=== PATIENT | male | born 1980 | race Caucasian/White ===

== ENCOUNTER 2020-05-26 10:37 | Day surgery (SDC) | payer OTHER ==
[2020-05-25 12:01] VITALS: BMI 44.3
[2020-05-26] MEDS ORDERED: MIDAZOLAM HCL 2 MG/2 ML SINGLE DOSE VIAL ONE (13:57)
[2020-05-26] MEDS ORDERED: IOHEXOL 180 MG/1 ML ML IJ ONE (14:13)
[2020-05-26] MEDS ORDERED: LIDOCAINE HCL 1%, 10 MG/ML (20ML VIAL) INF ONE (14:13)
[2020-05-26] MEDS ORDERED: LIDOCAINE HCL 1%, 10 MG/ML (20ML VIAL) ONE (14:19)
[2020-05-26] MEDS ORDERED: DEXAMETHASONE SOD PHOSPHATE/PF 10 MG/ML SDV ONE (14:19)
[2020-05-26] MEDS ORDERED: BUPIVACAINE HCL/PF 0.25% (2.5MG/ML) 10 ML VIAL IJ ONE ×2 (14:19→14:25)
[2020-05-26] MEDS ORDERED: DEXAMETHASONE SOD PHOSPHATE 10 MG/1 ML VIAL IM ONE (14:19)
[2020-05-26] MEDS ORDERED: BUPIVACAINE HCL/PF 0.25% (2.5MG/ML) 10 ML VIAL ONE (14:19)
[2020-05-26 16:34] VITALS: BP 123/69; PULSE 73; TEMP 97.5
--- NOTE | 2020-06-05 01:02 | PROC ---
Procedure Note Procedure: Date of operation : 05/26/2020 Preoperative diagnosis : Right leg pain, right foot pain , status post CRPS Postoperative diagnosis : Same Procedure : Right lumbar sympathetic block at L3 level Anesthesia : Local/MAC Procedure: I discussed with him in detail about risk benefit and alternative of treatment, not only limited to infection fever injury to blood vessels nerves, Viscera, hematoma paralysis, anything can happen. Patient understood, agreed, and signed the written consent. Patient was placed in the prone position with the head abdomen leg supported with pillows patient was given monitored anesthesia care. Under fluoroscopy L3 level, local anesthesia was injected into skin and subcutaneous tissue. A spinal needle was used to approach anterolateral aspect of the L3 vertebra on right side. Needle position was confirmed under fluoroscopy views. After negative aspiration of blood , contrast was injected to see the flow of dye. After negative aspiration, 10 mL of 0.25% Marcaine was injected at this level. Vitals were observed. Needle was withdrawn. bleeding was checked and a sterile bandage was placed. Patient tolerated procedure well. there was no immediate complications. Patient was transported to recovery room. patient was observed and asked the pain level, patient had significant relief of the pain. Patient was discharged as per ASU criteria. Patient was told to apply ice. If any problem call me or report to ER. Follow-up appointment was given. Berhane Cristina M.D.
== END 2020-05-26 16:00 | disposition home or self-care (01) ==
LOC: JASU-SURG 10:37
PROVIDERS: ATTEND Physical Medicine & Rehabilitation
PROC: BR16YZZ Fluoroscopy of Lumbar Facet Joint(s) using Other Contrast (ICD-10-PCS; 2020-05-26)
PROC: 3E0T3BZ Introduction of Anesthetic Agent into Peripheral Nerves and Plexi, Percutaneous Approach (ICD-10-PCS; principal; 2020-05-26 13:30)
DX: M79.604 Pain in right leg (principal); M79.671 Pain in right foot
CPT/HCPCS: 76000-TC-FY; J1100

== ENCOUNTER 2020-06-15 08:39 | Day surgery (SDC) | payer OTHER ==
[2020-06-14 14:53] VITALS: BMI 43.9
[2020-06-15] MEDS ORDERED: BUPIVACAINE HCL/PF 0.25% (2.5MG/ML) 10 ML VIAL ONE (09:41)
[2020-06-15] MEDS ORDERED: LIDOCAINE HCL 1%, 10 MG/ML (20ML VIAL) ONE (09:41)
[2020-06-15] MEDS ORDERED: BETAMET ACET/BETAMET NA PH 30 MG/5 ML VIAL ONE (09:42)
[2020-06-15] MEDS ORDERED: PROPOFOL 20 ML ONE (10:15)
[2020-06-15] MEDS ORDERED: BUPIVACAINE HCL/PF 0.5% (5 MG/ML) 30 ML VIAL IJ ONE ×2 (10:30→10:37)
[2020-06-15] MEDS ORDERED: BETAMET ACET/BETAMET NA PH 30 MG/5 ML VIAL IM ONE ×2 (10:30→10:37)
[2020-06-15] MEDS ORDERED: LIDOCAINE HCL 1%, 10 MG/ML (20ML VIAL) NR ONE ×2 (10:31→10:37)
[2020-06-15] MEDS ORDERED: DEXAMETHASONE SOD PHOSPHATE 4 MG/1 ML VIAL ONE (10:31)
[2020-06-15] MEDS ORDERED: DEXAMETHASONE SOD PHOSPHATE 4 MG/1 ML VIAL IVPUSH ONE ×2 (10:32→10:37)
[2020-06-15] MEDS ORDERED: ACETAMINOPHEN 325 MG TABLET (FP) PO PRN (11:45)
[2020-06-15] MEDS ORDERED: LACTATED RINGERS SOLUTION 1,000 ML IV SCH (11:45)
[2020-06-15] MEDS ORDERED: ONDANSETRON 4 MG/2 ML VIAL IVPUSH PRN (11:45)
[2020-06-15 13:47] VITALS: BP 130/79; PULSE 68; TEMP 7.1
[2020-06-15] MEDS ORDERED: oxyCODONE HCL 5 MG TABLET PO PRN (15:57)
--- NOTE | 2020-06-18 09:03 | PROC ---
Procedure Note Procedure: Date of service: 06/15/2020 Preoperative diagnosis : Right leg pain, right foot pain , status post CRPS Postoperative diagnosis : Same Procedure : Right lumbar sympathetic block at L3 level Anesthesia : Local/MAC Procedure : I discussed with him in detail about risk benefit and alternative of treatment, not only limited to infection fever injury to blood vessels nerves, Viscera, hematoma paralysis, anything can happen. Patient understood, agreed, and signed the written consent. Patient was placed in the prone position with the head abdomen leg supported with pillows patient was given monitored anesthesia care. Under fluoroscopy L3 level, local anesthesia was injected into skin and subcutaneous tissue. A spinal needle was used to approach anterolateral aspect of the L3 vertebra on right side. Needle position was confirmed under fluoroscopy views. After negative aspiration of blood , contrast was injected to see the flow of dye. After negative aspiration, 10 mL of 0.25% Marcaine with Dexamethasone was injected at this level. Vitals were observed. Needle was withdrawn. bleeding was checked and a sterile bandage was placed. Patient tolerated procedure well. there was no immediate complications. Patient was transported to recovery room. patient was observed and asked the pain level, patient had significant relief of the pain. Patient was discharged as per ASU criteria. Patient was told to apply ice. If any problem call me or report to ER. Follow-up appointment was given. Berhane Cristina M.D.
== END 2020-06-15 13:20 | disposition home or self-care (01) ==
LOC: JASU-SURG 08:39
PROVIDERS: ATTEND Physical Medicine & Rehabilitation
PROC: 3E0T33Z Introduction of Anti-inflammatory into Peripheral Nerves and Plexi, Percutaneous Approach (ICD-10-PCS; 2020-06-15)
PROC: 3E0T3BZ Introduction of Anesthetic Agent into Peripheral Nerves and Plexi, Percutaneous Approach (ICD-10-PCS; principal; 2020-06-15 10:30)
DX: G90.521 Complex regional pain syndrome I of right lower limb (principal); M79.661 Pain in right lower leg; M79.671 Pain in right foot
CPT/HCPCS: 76000-TC-FY

== ENCOUNTER 2020-11-07 05:28 | Day surgery (SDC) | payer OTHER ==
[2020-11-06 11:44] VITALS: BMI 43.9
[~2020-11-07 05:28] MED LIST: BETAMET ACET/BETAMET NA PH 30 MG/5 ML VIAL IJ ONE; DEXAMETHASONE SOD PHOSPHATE 4 MG/1 ML VIAL IVPUSH ONE; IOHEXOL 180 MG/1 ML ML IJ ONE; TRIAMCINOLONE ACETONIDE 40 MG/ML 10 ML VIAL IJ ONE
[2020-11-07] MEDS ORDERED: DEXAMETHASONE SOD PHOSPHATE/PF 10 MG/ML SDV ONE (10:35)
[2020-11-07] MEDS ORDERED: LIDOCAINE HCL/PF 2% SDV 5ML VIAL ONE (10:37)
[2020-11-07] MEDS ORDERED: BETAMET ACET/BETAMET NA PH 30 MG/5 ML VIAL IJ ONE (10:53)
[2020-11-07] MEDS ORDERED: DEXAMETHASONE SOD PHOSPHATE 4 MG/1 ML VIAL IVPUSH ONE (10:53)
[2020-11-07] MEDS ORDERED: IOHEXOL 180 MG/1 ML ML IJ ONE (10:53)
[2020-11-07] MEDS ORDERED: LIDOCAINE HCL 1%, 10 MG/ML (20ML VIAL) PNB ONE (10:53)
[2020-11-07] MEDS ORDERED: KETOROLAC TROMETHAMINE 30 MG/1 ML VIAL ONE (11:12)
[2020-11-07 13:30] VITALS: BP 124/80; PULSE 62; TEMP 97
== END 2020-11-07 12:55 | disposition home or self-care (01) ==
LOC: JASU-SURG 05:28
PROVIDERS: ATTEND Physical Medicine & Rehabilitation
PROC: 3E0T33Z Introduction of Anti-inflammatory into Peripheral Nerves and Plexi, Percutaneous Approach (ICD-10-PCS; 2020-11-07)
PROC: 3E0T3BZ Introduction of Anesthetic Agent into Peripheral Nerves and Plexi, Percutaneous Approach (ICD-10-PCS; principal; 2020-11-07 10:00)
DX: G90.521 Complex regional pain syndrome I of right lower limb (principal); M79.661 Pain in right lower leg; M79.671 Pain in right foot
CPT/HCPCS: 76000-TC-FY

== ENCOUNTER → 2021-07-02 | Day surgery (SDC) | payer OTHER ==
[2021-06-27 12:44] VITALS: BMI 40.1
[~2021-07-02] MED LIST changes: -BETAMET ACET/BETAMET NA PH 30 MG/5 ML VIAL IJ ONE; -DEXAMETHASONE SOD PHOSPHATE 4 MG/1 ML VIAL IVPUSH ONE; -IOHEXOL 180 MG/1 ML ML IJ ONE; +LIDOCAINE HCL 1%, 10 MG/ML (20ML VIAL) ONE; -TRIAMCINOLONE ACETONIDE 40 MG/ML 10 ML VIAL IJ ONE
== END | disposition home or self-care (01) ==
LOC: JASU-SURG 04:33
PROVIDERS: ATTEND Physical Medicine & Rehabilitation
DX: Z53.8 Procedure and treatment not carried out for other reasons (principal)

== ENCOUNTER → 2021-08-27 | Day surgery (SDC) | payer OTHER ==
[2021-08-23 17:44] VITALS: BMI 39.5
[~2021-08-27] MED LIST changes: +BENZOIN/ALOE VERA/STORAX/TOLU 58 ML BOTTLE ONE; +LABETALOL HCL 5 MG/1 ML (100MG/20 ML VIAL) IVPB ONE; +LABETALOL HCL 5 MG/1 ML (100MG/20 ML VIAL) ONE; +LIDOCAINE HCL 1%, 10 MG/ML (20ML VIAL) INF ONE; -LIDOCAINE HCL 1%, 10 MG/ML (20ML VIAL) ONE; +MIDAZOLAM HCL 2 MG/2 ML SINGLE DOSE VIAL ONE; +PROPOFOL 20 ML ONE; +ceFAZolin 2 GRAM PREMIX BAG IVPB ONE; +ceFAZolin SODIUM 1 GM VIAL IVPB ONE
[2021-08-27 13:25] VITALS: BP 134/76; PULSE 60; TEMP 97.1
== END | disposition home or self-care (01) ==
LOC: JASU-SURG 04:35
PROVIDERS: ATTEND Physical Medicine & Rehabilitation
PROC: 00HU3MZ Insertion of Neurostimulator Lead into Spinal Canal, Percutaneous Approach (ICD-10-PCS; 2021-08-27)
PROC: 4B01XVZ Measurement of Peripheral Nervous Stimulator, External Approach (ICD-10-PCS; principal; 2021-08-27 11:30)
DX: G57.71 Causalgia of right lower limb (principal)
CPT/HCPCS: 63650; C1897; 76000-TC-FY